=== PATIENT | male | born 1950 | race Caucasian/White ===

== ENCOUNTER → 2020-05-29 | Outpatient (CLI) | payer OTHER | END | disposition home or self-care (01) | LOC: CVU 09:34 | PROVIDERS: ATTEND Internal Medicine Interventional Cardiology | DX: I36.1 Nonrheumatic tricuspid (valve) insufficiency (principal); I10 Essential (primary) hypertension; R07.9 Chest pain, unspecified | CPT/HCPCS: 93017; 93306; 93356 ==